=== PATIENT | male | born 1970 | race African-American/Black ===

== ENCOUNTER 2018-12-17 11:37 | Emergency (ER) | payer OTHER ==
[~2018-12-17] VITALS: Ht 172.7 cm; Wt 104.3 kg
--- NOTE | ~2018-12-17 | EKG ---
[place] ELECTROCARDIOGRAM REPORT NAME: GARETH BURKS UNIT #: [id number] ROOM: DOCTOR: EPIPHANY DRAFT REPORT BIRTHDATE: [birth year] [facility] Test Date: 2018-12-17 Test Time: 11:42:30 Pat Name: GARETH BURKS Department: Room: Gender: Director [employer]: Francesca Chaudhry : 1970 Requested By: ALEXANDER FRENCH Order Number: [id number] Reading MD: Wei Ta MD Measurements Intervals [place] Rate: 61 P: 26 MA: 138 QRS: 51 QRSD: 95 T: 74 QT: 441 QTc: 445 Interpretive Statements Sinus rhythm Nonspecific T abnormalities, lateral leads ST elev, consider acute anterolateral ischemia No previous ECG available for comparison Electronically Signed On 12-17-2018 18:01:48 PST by Wei Ta MD CM:EKGRPT:ELECTROCARDIOGRAM REPORT [id number] 1801 ALEXANDER DICK DRAFT REPORT ALEXANDER FRENCH M.D.
[2018-12-17] MEDS ORDERED: HYDROXYZINE HCL25 MG PO (11:44)
[2018-12-17] MEDS ORDERED: CHOLECALCIFEROL PO (11:45)
[2018-12-17 11:55] LABS: BASO % 0.2 % (0.0-1.0); EOS % 0.2 % (1.0-4.0); HEMATOCRIT 43.6 % (42.0-52.0); HEMOGLOBIN 14.6 g/dl (14.0-18.0); LYMPH # 2.4 10*3/uL (1.3-4.4); LYMPH % 26.3 % (27.0-41.0); MEAN CORPUSCULAR HGB 31.8 pg (27.0-31.0); MEAN CORPUSCULAR HGB CONC 33.5 g/dl (33.0-37.0); MONO # 0.9 10*3/uL (0.1-1.0); MONO % 9.4 % (3.0-9.0); NEUT # 5.8 10*3/uL (2.3-7.9); NEUT % 63.7 % (47.0-73.0); PLATELET COUNT AUTOMATED 253 10*3/uL (130-400); RED BLOOD COUNT 4.59 10*6/uL (4.50-5.90); RED CELL DISTRI WIDTH 13.4 % (0-14.5); WHITE BLOOD COUNT 9.2 10*3/uL (4.8-10.8)
[2018-12-17 12:04] LABS: INTERNATIONAL NORM RATIO 0.9 (2.0-3.5)
[2018-12-17 12:10] LABS: ALBUMIN 4.3 gm/dl (3.1-4.5); ALKALINE PHOSPHATASE 62 U/L (45-117); BUN 13 mg/dl (7-24); CHLORIDE 106 mmol/L (98-107); CREATININE 1.26 mg/dL (0.70-1.30); POTASSIUM 3.7 mmol/L (3.5-5.1); SGOT/AST 133 IU/L (3-35); SGPT/ALT 60 U/L (12-78); SODIUM 141 mmol/L (136-145); TOTAL PROTEIN 8.5 gm/dL (6.4-8.2)
== END 2018-12-17 13:08 | disposition short-term general hospital (02) ==
LOC: ED 11:37
PROVIDERS: Emergency Medicine
DX: I21.3 ST elevation (STEMI) myocardial infarction of unspecified site (principal); F17.200 Nicotine dependence, unspecified, uncomplicated; Z79.899 Other long term (current) drug therapy

== ENCOUNTER → 2023-12-26 | Outpatient (CLI) | payer OTHER ==
[~2023-12-26] MED LIST: CHOLECALCIFEROL PO; HYDROXYZINE HCL25 MG PO
[2023-12-26 12:21] LABS: BASO % 0.5 % (0.0-1.0); EOS # 0.1 10*3/uL (0.0-0.4); EOS % 1.8 % (1.0-4.0); HEMATOCRIT 44.3 % (42.0-52.0); LYMPH # 2.7 10*3/uL (1.3-4.4); LYMPH % 43.6 % (27.0-41.0); MEAN CELL VOLUME 95.7 fl (80.0-94.0); MEAN CORPUSCULAR HGB 30.5 pg (27.0-31.0); MEAN CORPUSCULAR HGB CONC 31.8 g/dl (33.0-37.0); MEAN PLATELET VOLUME 10.2 fl (9.6-12.3); MONO # 0.6 10*3/uL (0.1-1.0); MONO % 10.2 % (3.0-9.0); NEUT # 2.7 10*3/uL (2.3-7.9); NEUT % 43.7 % (47.0-73.0); PLATELET COUNT AUTOMATED 257 10*3/uL (130-400); RED BLOOD COUNT 4.63 10*6/uL (4.50-5.90); RED CELL DISTRI WIDTH 13.5 % (0-14.5); RETICULOCYTE % 1.98 % (0.50-2.50); WHITE BLOOD COUNT 6.1 10*3/uL (4.8-10.8)
[2023-12-26 12:26] LABS: BILIRUBIN Negative (Negative); BLOOD 2+ (Negative); CLARITY Clear (Clear); COLOR Yellow (Yellow); GLUCOSE Negative (Negative); KETONE Negative (Negative); LEUKO ESTERASE Negative (Negative); NITRITE Negative (Negative); PH 6.5 (4.5-8.0)
[2023-12-26 12:37] LABS: MUCOUS 1+; RBC 51-100 rbc/hpf (0-2); WBC 0-2 wbc/hpf (0-5)
[2023-12-26 12:52] LABS: ALKALINE PHOSPHATASE 76 U/L (46-116); BUN 7 mg/dl (9-23); CHLORIDE 107 mmol/L (98-107); CHOLESTEROL 220 mg/dL (<200); GAMMA GLUTAMYL TRANSPEPTIDASE 47 U/L (0-73); LDL CHOLESTEROL 119 mg/dL (9-159); POTASSIUM 3.5 mmol/L (3.4-5.1); SGPT/ALT 109 U/L (5-49); T3 UPTAKE 28.5 % (22.4-36.7); THYROXINE (T4) TOTAL 5.6 ug/dl (4.5-10.9); TOTAL PROTEIN 7.3 gm/dL (6.0-8.0); TRIGLYCERIDES 166 mg/dl (<150); URIC ACID 5.2 mg/dL (3.7-9.2)
[2023-12-26 12:57] LABS: VITAMIN D, 25-HYDROXY 15.4 ng/mL (30-100)
[2023-12-29 11:07] LABS: ANTI-DSDNA ANTIBODIES 1 IU/mL (0-9)
== END | disposition home or self-care (01) ==
LOC: LAB 10:53
PROVIDERS: ATTEND Family Medicine
DX: M17.0 Bilateral primary osteoarthritis of knee (principal); E78.5 Hyperlipidemia, unspecified; E55.9 Vitamin D deficiency, unspecified; R79.89 Other specified abnormal findings of blood chemistry; R74.8 Abnormal levels of other serum enzymes; R53.83 Other fatigue; M19.012 Primary osteoarthritis, left shoulder; M47.816 Spondylosis without myelopathy or radiculopathy, lumbar region; M19.022 Primary osteoarthritis, left elbow